=== PATIENT | female | born 1960 | race Caucasian/White ===

== ENCOUNTER → 2023-07-01 | Outpatient (REF) | payer SELFPAY ==
[2023-07-01 18:24] LABS: Absolute Lymphocyte Count 1.66 X10^3/uL (0.83-4.51); Absolute Neutrophil Count 1.6 X10^3/uL (2.0-7.7); Basophil# 0.03 X10^3/uL; Basophil% 0.8 % (0-1); Eosinophil# 0.12 X10^3/uL; Eosinophils% 3.1 % (0-5); Hematocrit 37.6 % (37-47); Hemoglobin 11.4 g/dL (12.0-15.0); Lymphocyte # 1.66 X10^3/ul (0.83-4.51); Lymphocyte % 42.5 % (19-41); Mean Corp Hgb Conc 30.3 g/dL (32-36); Mean Corpuscular Volume 82.5 fL (81-99); Monocyte# 0.48 X10^3/uL; Monocyte% 12.3 % (0-10); NRBC Flagged by Analyzer 0 % (0-5); Neutrophil # 1.62 X10^3/uL (2.7-7.7); Neutrophil % 41.3 % (47-70); Platelet Count 293 K/mm3 (150-450); RBC Distribution Width CV 14.1 % (11.6-14.6); RBC Distribution Width SD 41.6 fl (35.1-43.9); Red Blood Count 4.56 M/mm3 (4.2-5.4); White Blood Count 3.9 K/mm3 (4.4-11.0)
[2023-07-01 18:44] LABS: ALB/GLOB Ratio 0.9 RATIO (0.9-2.4); AST(SGOT) 33 U/L (15-37); Alanine Aminotransfer ALT/SGPT 35 U/L (13-56); Albumin, Serum 3.3 g/dL (3.2-5.0); Alkaline Phosphatase 84 U/L (45-117); Anion Gap 8 (5-15); BUN 9 mg/dL (7-18); BUN/Creat Ratio 13.8 RATIO (10-20); Chloride 108 mmol/L (98-107); Creatinine, Serum 0.65 mg/dL (0.55-1.02); EST Glomerular Filtration Rate 97 mL/min (>60); Est Glom Filt Rate - Afr Amer 117 mL/min (>60); Globulin 3.6 g/dL (2.2-4.2); Glucose 137 mg/dL (74-106); Potassium 4.6 mmol/L (3.5-5.1); Protein, Total 6.9 g/dL (6.4-8.2); Sodium Level 143 mmol/L (136-145)
[2023-07-01 19:01] LABS: Vitamin D,25 Hydroxy 44.9 ng/mL
== END | disposition home or self-care (01) ==
LOC: LABSPEC 18:08
PROVIDERS: Visit Provider Family Medicine
DX: R53.83 Other fatigue (principal)
CPT/HCPCS: 80053; 82306; 85025

== ENCOUNTER → 2023-12-12 | Outpatient (CLI) | payer MEDICARE, SELFPAY ==
--- OUTSIDE RECORDS SUMMARY | 2023-12-12 10:05 | XMS RPT_ITS | CCD ---
Author Name Unknown Address [address] [place] [address] Organization [facility] Care Team Providers Care General Maintenance Technician Name Role Phone MAST TUBER HELPER-VAULT ATTENDANT, EDMOND Primary Care Physician ([phone]) MAST TUBER HELPER-VAULT ATTENDANT, EDMOND Attending Unavailabl e MAST TUBER HELPER-VAULT ATTENDANT, EDMOND Primary Care Unavailabl e MAST TUBER HELPER-VAULT ATTENDANT, EDMOND Attending Unavailabl e MAST TUBER HELPER-VAULT ATTENDANT, EDMOND Primary Care Unavailabl e MAST TUBER HELPER-VAULT ATTENDANT, EDMOND Primary Care Unavailabl e EDUARDO QUIROS, DR PAULINO Attending Unavailab le MAST TUBER HELPER-VAULT ATTENDANT, EDMOND Attending Unavailabl e MAST TUBER HELPER-VAULT ATTENDANT, EDMOND Primary Care Unavailabl e MAST TUBER HELPER-VAULT ATTENDANT, EDMOND Attending Unavailabl e MAST TUBER HELPER-VAULT ATTENDANT, EDMOND Primary Care Unavailabl e Allergies Allergy Classification Reported Allergen(s) Allergy Type Date of Onset Reaction(s) Facility (2 sources) Amoxicillin / Clavulanate; Translations: [amoxicillin-cl avulanate] Drug Allergy Diarrhea (finding) [facility] (2 sources) Codeine; Translations: [codeine] Drug Allergy Clouded consciousness (finding) [facility] Medications Current Medications Medication Drug Class(es) Dates Sig (Normalized) Sig (Original) Iron (2 sources) Start: 11-05-2023 iron iron, 30 mg, 0 Refill(s), 57.4 Start Date: 11/05/23 Status: Ordered Problems Problem Classification Problem Date Documented Da te Episodic/Chronic Conditions associated with dizziness or vertigo (2 sources) Dizziness 05-02-2023 Episodic Fluid and electrolyte disorders (2 sources) Dehydration 07-18-2023 Episodic Intestinal infection (2 sources) Clostridium difficile colitis 07-18-2023 Episodic Nonspecific chest pain (2 sources) Chest discomfort 05-02-2023 Episodic Other lower respiratory disease (2 sources) Dyspnea on exertion 05-02-2023 Episodic Other nutritional; endocrine; and metabolic disorders (2 sources) Weight gain 11-05-2023 Episodic Residual codes; unclassified (2 sources) Physical deconditioning 05-02-2023 Episodic Screening and history of mental health and substance abuse codes (2 sources) Tobacco use and exposure - finding 05-02-2023 Chronic Results Test Name Value Interpretation Reference Range Facil ity Encounters Encounter Date Encounter Type Care Provider Facility Start: 12-11-2023 ambulatory EDMOND MAST TUBER HELPER-VAULT ATTENDANT Fa cility:B Start: 12-03-2023 End: 12-04-2023 ambulatory EDMOND MAST TUBER HELPER-VAULT ATTENDANT Facility:B Start: 11-14-2023 End: 11-15-2023 ambulatory EDMOND MAST TUBER HELPER-VAULT ATTENDANT Facility:B Start: 11-14-2023 End: 11-14-2023 Patient encounter procedure EDMOND MAST TUBER HELPER-VAULT ATTENDANT [facility] Start: 11-05-2023 End: 11-06-2023 ambulatory EDMOND MAST TUBER HELPER-VAULT ATTENDANT Facility:B Start: 11-05-2023 End: 11-05-2023 Patient encounter procedure EDMOND MAST TUBER HELPER-VAULT ATTENDANT [facility] Start: 07-16-2023 End: 07-16-2023 Emergency department patient visit EDMOND MAST TUBER HELPER-VAULT ATTENDANT Facility:B Payers Date Payer Category Payer Private Health Insurance [id number] 2023 Self-pay 1960 Unknown [id number] 2.16.8 [id number] 1960 Unknown [id number] 2.16.8 [id number] 1960 Unknown [id number] 2.16.8 [id number] 1960 Unknown [id number] 2.16.8 [id number] 1960 Unknown [id number] 2.16.8 [id number] Social History Date Type Detail Facility Start: 11-05-2023 Tobacco smoking status Ex-smoker (fi nding) [facility] Sex Assigned At Sex [facility] Clinical Note 11-14-2023 Note Date & Type Note Facility 11-14-2023 Note ORIGINAL FROM: [facility] [address] [place], [place] [address] PROCEDURE FOR: BELLA CHRIS [address] [place] [id number] Home: PID#: [id number] Exam#: [id number] : 1960 Age: 63 TO: EDMOND THORNTON APRN [place], [place] [address] EXAMINATION: SCREENING DIGITAL BILATERAL MAMMOGRAM WITH TOMOSYNTHESIS, 11/14/2023 7:19 am TECHNIQUE: Screening mammography of the bilateral breasts was performed with tomosynthesis. 2D standard and 3D tomosynthesis combination imaging performed through both breasts in the MLO and CC projection. Computer aided detection was utilized in the interpretation of this exam. COMPARISON: None. HISTORY: Breast cancer screening. FINDINGS: BREAST DENSITY: Scattered fibroglandular tissue There are benign appearing calcifications in the left breast. There are no significant masses or calcifications. IMPRESSION: No mammographic evidence of malignancy. Continued screening with annual mammograms is recommended. Sharyn Welch risk calculations, generated with the history provided, report this patient's 10 year risk and lifetime risk for developing breast cancer at 3.3% and 6.9%, respectively. Based on this assessment tool, if the patient's calculated lifetime risk is below 20%, then the patient is considered at average risk for developing breast cancer. If the patient's calculated lifetime risk is at or above 20%, then the patient is considered high risk for developing breast cancer and may be a candidate for supplemental breast MRI screening in addition to annual mammographic screening per the [employer]. I have personally reviewed the images of this examination and agree with the resident's findings and interpretation. BIRADS: MAMMOGRAM BI-RADS: 2: Benign finding RECALL: 1 year screening RECALL TYPE: mammo LETTER SENT: Normal BI-RADS 1 and 2 Interpreted by: Michael Orlando MD Preliminary Report By: Bella Lan Electronically signed By Michael Orlando MD Dictated Date: 11/14/2023 10:11:01 AM Prelim Date: 11/14/2023 4:22:24 PM Sign Date: 11/14/2023 4:22:24 PM Ordering Provider: EDMOND THORNTON CLINICAL: BASELINE PATIENT HAD ONE PRIOR MAMMOGRAM 15+ YEARS AGO. Police Liaison: BENJAMIN HENRY RT(R)(M)(CT) GRAPHICS INTERN letter sent: Normal BI-RADS 1 and 2 Mammogram BI-RADS: 2 Benign [facility] Clinical Note 07-21-2023 Note Date & Type Note Facility 07-21-2023 Note . MICRO - Microbiology PROCEDURE: Fecal Leukocytes [*1] SOURCE: Stool BODY SITE: COLLECTED DATE/TIME: 07/16/2023 14:20 EDT RECEIVED DATE/TIME: 07/16/2023 20:07 EDT START DATE/TIME: 07/16/2023 20:07 EDT FREE TEXT SOURCE: FINAL REPORTS Final Report [] Verified Date/Time/Personnel: 07/21/2023 09:37 EDT Microscopy: Fecal Leukocytes Present Fecal leukocytes may be associated with enteroinvasive infection. However, from our data , in only 50% of bacterial GI infections is there evidence of fecal WBC's. STAINS GS [] Verified Date/Time/Personnel: 07/16/2023 22:09 EDT Microscopy: Fecal Leukocytes Present Fecal leukocytes may be associated with enteroinvasive infection. However, from our data , in only 50% of bacterial GI infections is there evidence of fecal WBC's. Performing Locations *1: This test was performed at: [facility], [address] [place] [address], [id number] , [facility] ([place]) Clinical Note 07-19-2023 Note Date & Type Note Facility 07-19-2023 Note . MICRO - Microbiology PROCEDURE: Stool Culture [^1 *1] SOURCE: Stool BODY SITE: COLLECTED DATE/TIME: 07/16/2023 14:20 EDT RECEIVED DATE/TIME: 07/16/2023 20:07 EDT START DATE/TIME: 07/16/2023 20:07 EDT FREE TEXT SOURCE: FINAL REPORTS Final Report [] Verified Date/Time/Personnel: 07/19/2023 10:40 EDT Normal stool arlene present. Salmonella: Negative Shigella: Negative Campylobacter: Negative PRELIMINARY REPORTS Preliminary Report [] Verified Date/Time/Personnel: 07/18/2023 12:39 EDT Normal stool arlene present. Negative for stool pathogens at 48 hours. Final report to follow. Interpretive Data ^1: Culture Stool Requests for alternative pathogens including Yersinia, E. coli 0157, C. difficile toxin, Rotavirus, Giardia and parasites require specific requests. Performing Locations *1: This test was performed at: [address], [address] [place] [address] ([place]) Clinical Note 07-17-2023 Note Date & Type Note Facility 07-17-2023 Note . MICRO - Microbiology PROCEDURE: Shiga Toxins 1 and 2 [[id number]: [id number] ^1 *1] SOURCE: Stool BODY SITE: COLLECTED DATE/TIME: 07/16/2023 20:07 EDT RECEIVED DATE/TIME: 07/16/2023 20:07 EDT START DATE/TIME: 07/16/2023 20:07 EDT FREE TEXT SOURCE: FINAL REPORTS Final Report [] Verified Date/Time/Personnel: 07/17/2023 13:01 EDT Absence of Shiga toxin 1 Absence of Shiga toxin 2 Order Comments O1: Shiga Toxins 1 and 2 ordered by lab as part of Culture Stool Panel Interpretive Data ^1: Shiga Toxins 1 and 2 Testing performed by immunochromatography. Performing Locations *1: This test was performed at: [address], [address] [place] [address] ([place]) Evaluation + Plan note Radiology Note Date & Type Note Facility Evaluation + Plan note Future Appointments Appointment Date:12/03/2023 08:00:00 AM Scheduled Provider:EDMOND THORNTON Location:[facility] Appointment Type:PC Wellness Medicare Future Scheduled TestsMA Mammo Screening Bilateral w/ Jeffry 11/05/23 [facility] Evaluation + Plan note Note Date & Type Note Facility Evaluation + Plan note Future Appointments Appointment Date:12/03/2023 08:00:00 AM Scheduled Provider:EDMOND THORNTON Location:[facility] Appointment Type: Wellness Medicare [facility] Hospital course Narrative Note Date & Type Note Facility Hospital course Narrative No data available for this section [facility] Hospital Discharge instructions Note Date & Type Note Facility Hospital Discharge instructions No data available for this section [facility] Progress note Note Date & Type Note Facility Progress note No data available for this section [facility] Summary Purpose Family History No Family History Records Found Advance Directives No Advanced Directives Records Found Additional Source Comments Patient Care team informatio n (unrecognized section and content) Care Team Personnel Name: EDMOND THORNTON Position: P4 Advanced Railroad Dispatcher Member Role: Primary Care Physician Address: Address: [address] [place] [address] Care Team Related Persons Name: RICA CHRIS Address: Home [address] [place] [phone] Address: Temporary [address] [place] [phone] Care Team Personnel Name: EDMOND THORNTON Position: P4 Advanced Railroad Dispatcher Member Role: Primary Care Physician Address: Address: [address] [place] [address] Care Team Related Persons Name: RICA CHRIS Address: Home [address] [place] [phone] Address: Temporary [address] [place] [phone] INFORMATION SOURCE (unrecogn ized section and content) FOR RECORDS PERTAINING TO PATIENTS WHO ARE OR HAVE BEEN ENROLLED IN A CHEMICAL DEPENDENCY/SUBSTANCEABUSE PROGRAM, SOME INFORMATION MAY BE OMITTED. This clinical summary was aggregated from multiple sources. Caution should be exercised in using it in the provision of clinical care. This summary normalizes information from multiple sources, and as a consequence, information in this document may materially change the coding, format and clinical context of patient data. In addition, data may be omitted in some cases. CLINICAL DECISIONS SHOULD BE BASED ON THE PRIMARY CLINICAL RECORDS. [facility] [employer] [facility]. provides no warranty or guarantee of the accuracy or completeness of information in this document.
[2023-12-12 12:57] LABS: T4 Free Direct 0.59 ng/dL (0.76-1.46); Thyroid Stim Hormone (TSH) < 0.01 uIU/mL (0.358-3.74)
== END | disposition home or self-care (01) ==
LOC: BIMLAB 09:41
PROVIDERS: PCP Nurse Practitioner Adult Health; Visit Provider Internal Medicine Endocrinology, Diabetes & Metabolism
DX: E05.00 Thyrotoxicosis with diffuse goiter without thyrotoxic crisis or storm (principal)
CPT/HCPCS: 36415; 84439; 84443; 84481

== ENCOUNTER → 2024-01-09 | Outpatient (CLI) | payer MEDICARE, SELFPAY ==
--- OUTSIDE RECORDS SUMMARY | 2024-01-09 12:32 | XMS RPT_ITS | CCD ---
Author Name Unknown Address [address] [place] [address] Organization [facility] Care Team Providers Care Custodian Athletic Equipment Name Role Phone MAST FANCY WIRE DRAWER-VENDOR MANAGEMENT SPECIALIST, EDMOND Primary Care Physician ([phone]) MAST FANCY WIRE DRAWER-VENDOR MANAGEMENT SPECIALIST, EDMOND Attending Unavailabl e MAST FANCY WIRE DRAWER-VENDOR MANAGEMENT SPECIALIST, EDMOND Primary Care Unavailabl e EDUARDO QUIROS, DR PAULINO Attending Unavailab le MAST FANCY WIRE DRAWER-VENDOR MANAGEMENT SPECIALIST, EDMOND Primary Care Unavailabl e MAST FANCY WIRE DRAWER-VENDOR MANAGEMENT SPECIALIST, EDMOND Attending Unavailabl e MAST FANCY WIRE DRAWER-VENDOR MANAGEMENT SPECIALIST, EDMOND Primary Care Unavailabl e MAST FANCY WIRE DRAWER-VENDOR MANAGEMENT SPECIALIST, EDMOND Attending Unavailabl e MAST FANCY WIRE DRAWER-VENDOR MANAGEMENT SPECIALIST, EDMOND Primary Care Unavailabl e MAST FANCY WIRE DRAWER-VENDOR MANAGEMENT SPECIALIST, EDMOND Attending Unavailabl e MAST FANCY WIRE DRAWER-VENDOR MANAGEMENT SPECIALIST, EDMOND Primary Care Unavailabl e Allergies Allergy Classification Reported Allergen(s) Allergy Type Date of Onset Reaction(s) Facility (3 sources) Amoxicillin / Clavulanate; Translations: [amoxicillin-cl avulanate] Drug Allergy Diarrhea (finding) [facility] (3 sources) Codeine; Translations: [codeine] Drug Allergy Clouded consciousness (finding) [facility] Medications Current Medications Medication Drug Class(es) Dates Sig (Normalized) Sig (Original) Iron (2 sources) Start: 11-05-2023 iron iron, 30 mg, 0 Refill(s), 57.4 Start Date: 11/05/23 Status: Ordered methIMAzole 10 mg oral tablet (1 source) Thyroid Hormone Synthesis Inhibitor Start: 12-03-2023 methIMAzole 10 mg oral tablet Dose : 10 mg = 1 tab(s), Oral, q8h, # 90 tab(s), 0 Refill(s) Start Date: 12/03/23 Status: Ordered Problems Problem Classification Problem Date Documented Da te Episodic/Chronic Conditions associated with dizziness or vertigo (3 sources) Dizziness 05-02-2023 Episodic Fluid and electrolyte disorders (3 sources) Dehydration 07-18-2023 Episodic Intestinal infection (2 sources) Clostridium difficile colitis 07-18-2023 Episodic Nonspecific chest pain (3 sources) Chest discomfort 05-02-2023 Episodic Other gastrointestinal disorders (1 source) H/O: colitis 12-03-2023 Episodic Other lower respiratory disease (3 sources) Dyspnea on exertion 05-02-2023 Episodic Other nutritional; endocrine; and metabolic disorders (2 sources) Weight gain 11-05-2023 Episodic Other screening for suspected conditions (not mental disorders or infectious disease) (1 source) Stool DNA-based colorectal cancer screening positive 11-19-2023 Episodic Residual codes; unclassified (3 sources) Physical deconditioning 05-02-2023 Episodic Residual codes; unclassified (1 source) Postmenopausal state 12-03-2023 Episodic Screening and history of mental health and substance abuse codes (3 sources) Tobacco use and exposure - finding 05-02-2023 Chronic Results Test Name Value Interpretation Reference Range Facil ity Encounters Encounter Date Encounter Type Care Provider Facility Start: 12-12-2023 End: 12-13-2023 ambulatory EDMOND MAST FANCY WIRE DRAWER-VENDOR MANAGEMENT SPECIALIST Facility:B Start: 12-12-2023 End: 12-12-2023 Patient encounter procedure EDMOND MAST FANCY WIRE DRAWER-VENDOR MANAGEMENT SPECIALIST [facility] Start: 12-03-2023 End: 12-04-2023 ambulatory EDMOND MAST FANCY WIRE DRAWER-VENDOR MANAGEMENT SPECIALIST Facility:B Start: 11-14-2023 End: 11-15-2023 ambulatory EDMOND MAST FANCY WIRE DRAWER-VENDOR MANAGEMENT SPECIALIST Facility:B Start: 11-14-2023 End: 11-14-2023 Patient encounter procedure EDMOND MAST FANCY WIRE DRAWER-VENDOR MANAGEMENT SPECIALIST [facility] Start: 11-05-2023 End: 11-06-2023 ambulatory EDMOND MAST FANCY WIRE DRAWER-VENDOR MANAGEMENT SPECIALIST Facility:B Start: 11-05-2023 End: 11-05-2023 Patient encounter procedure EDMOND THORNTON FANCY WIRE DRAWER-VENDOR MANAGEMENT SPECIALIST [facility] Start: 07-16-2023 End: 07-16-2023 Emergency department patient visit DR ANDREA CLARK MD Facility:B Payers Date Payer Category Payer Private Health Insurance [id number] 2023 Self-pay 1960 Unknown [id number] 2.16.8 [id number] 1960 Unknown [id number] 2.16.8 [id number] 1960 Unknown [id number] 2.16.8 [id number] 1960 Unknown [id number] 2.16.8 [id number] 1960 Unknown [id number] 2.16.8 [id number] Social History Date Type Detail Facility Start: 11-05-2023 Tobacco smoking status Ex-smoker (fi nding) [facility] Sex Assigned At Sex [facility] Clinical Note 12-12-2023 Note Date & Type Note Facility 12-12-2023 Note ORIGINAL EXAMINATION: BONE DENSITOMETRY 12/12/2023 1:22 pm TECHNIQUE: A bone density dual x-ray absorptiometry (DEXA) scan was performed of the axial (e.g. hips, spine) and/or appendicular (e.g. radius) skeleton as appropriate. COMPARISON: None. HISTORY: Reason for Exam: Osteoporosis Screening FINDINGS: BMD (g/cm2) Lumbar Spine L1-L4: 0.728. T Score Lumbar Spine L1-L4: -2.9 BMD (g/cm2) Left Femoral Neck: 0.556. T Score Left Femoral Neck: -2.6 BMD (g/cm2) Left Hip: 0.707. T Score Left Hip: -1.9 IMPRESSION: Osteoporosis by WHO criteria. I have personally reviewed the images of this examination and agree with the resident's findings and interpretation. Interpreted by: Thanh Alford MD Preliminary Report By: Andrea Mejia Electronically signed By Thanh Alford MD Dictated Date: 12/12/2023 1:50:55 PM Prelim Date: 12/12/2023 4:27:06 PM Sign Date: 12/12/2023 4:27:06 PM [facility] 11-14-2023 Note Date & Type Note Facility 11-14-2023 Note ORIGINAL FROM: [facility] [address] [place] [address] PROCEDURE FOR: BELLA GALLEGOSNNEMAN [address] [place] [phone] Home: PID#: [id number] Exam#: [id number] : 1960 Age: 63 TO: [facility] [place]RISTINA [place] [address] EXAMINATION: SCREENING DIGITAL BILATERAL MAMMOGRAM WITH TOMOSYNTHESIS, [...] Continued screening with annual mammograms is recommended. Tyrer Cuzick risk calculations, generated with the history provided, [...] addition to annual mammographic screening per the [place] [employer]. I have personally reviewed the [...] HAD ONE PRIOR MAMMOGRAM 15+ YEARS AGO. L D Rn: BENJAMIN HENRY RT(R)(M)(CT) WEB SITE ADMINISTRATOR letter sent: Normal BI-RADS 1 and 2 Mammogram BI-RADS: 2 Benign [facility] Clinical Note 07-21-2023 Note Date & Type [...] Locations *1: This test was performed at: [facility], [address] [place] [address], [address] , [facility] ([place]) Clinical Note 07-19-2023 Note Date & Type [...] Locations *1: This test was performed at: [address], [address] [place] [address] ([place]) Clinical Note 07-17-2023 Note Date & Type Note Facility 07-17-2023 Note . MICRO - Microbiology PROCEDURE: Shiga Toxins 1 and 2 [[id number]: [id number] ^1 *1] SOURCE: Stool BODY SITE: COLLECTED [...] Locations *1: This test was performed at: [address], [address] [place] [address] ([place]) Evaluation + Plan note Radiology Note Date & Type Note Facility Evaluation + Plan note Future Appointments Appointment Date:12/03/2023 08:00:00 AM Scheduled Provider:EDMOND THORNTON Location:[facility] Appointment Type:PC Wellness Medicare Future Scheduled TestsMA Mammo Screening Bilateral w/ Jeffry 11/05/23 [facility] Evaluation + Plan note Note Date & Type Note Facility Evaluation + Plan note Future Appointments Appointment Date:12/03/2023 08:00:00 AM Scheduled Provider:EDMOND THORNTON Location:[facility] Appointment Type:PC Wellness Medicare [facility] Hospital course Narrative Note Date & Type Note Facility Hospital course Narrative No data available for this section [facility] Hospital Discharge instructions Note Date & Type Note Facility Hospital Discharge instructions No data available for this section [facility] Progress note Note Date & Type Note Facility Progress note No data available for this section [facility] Summary Purpose Family History No Family History Records Found Advance Directives No Advanced Directives Records Found Additional Source Comments Patient Care team informatio n (unrecognized section and content) Care Team Personnel Name: EDMOND THORNTON Position: P4 Advanced Box Truck Washer Member Role: Primary Care Physician Address: Address: [address] [place] [address] Care Team Related Persons Name: RICA CHRIS Address: Home [address] [place] [phone] Address: Temporary [address] [place] [phone] Care Team Personnel Name: EDMOND THORNTON Position: P4 Advanced Box Truck Washer Member Role: Primary Care Physician Address: Address: [address] [place] [address] Care Team Related Persons Name: RICA CHRIS Address: Home [address] [place] [phone] Address: Temporary [address] [place] [phone] Care Team Personnel Name: EDMOND THORNTON Position: P4 Advanced Box Truck Washer Member Role: Primary Care Physician Address: Address: [address] [facility] [place] [address]- Care Team Related Persons Name: RICA CHRIS Address: Home [address] [place], [place] [phone] Address: Temporary [address] [place], [place] [phone] INFORMATION SOURCE (unrecogn ized section and content) [...] BE BASED ON THE PRIMARY CLINICAL RECORDS. [facility]. provides no warranty or guarantee of the accuracy or completeness of information in this document.
[2024-01-09 13:42] LABS: Free T3 1.7 pg/mL (2.18-3.98); T4 Free Direct 0.41 ng/dL (0.76-1.46); Thyroid Stim Hormone (TSH) 4.46 uIU/mL (0.358-3.74)
== END | disposition home or self-care (01) ==
LOC: BIMLAB 11:05
PROVIDERS: PCP Nurse Practitioner Adult Health; Visit Provider Internal Medicine Endocrinology, Diabetes & Metabolism
DX: E05.00 Thyrotoxicosis with diffuse goiter without thyrotoxic crisis or storm (principal)
CPT/HCPCS: 36415; 84439; 84443; 84481

== ENCOUNTER → 2024-01-30 | Outpatient (CLI) | payer MEDICARE, SELFPAY ==
[2024-01-30 16:37] LABS: Free T3 2.5 pg/mL (2.18-3.98); T4 Free Direct 0.72 ng/dL (0.76-1.46)
== END | disposition home or self-care (01) ==
LOC: BIMLAB 12:04
PROVIDERS: PCP Nurse Practitioner Adult Health; Referring Provider Internal Medicine Endocrinology, Diabetes & Metabolism; Visit Provider Internal Medicine Endocrinology, Diabetes & Metabolism
DX: E05.00 Thyrotoxicosis with diffuse goiter without thyrotoxic crisis or storm (principal)
CPT/HCPCS: 36415; 84439; 84443; 84481

== ENCOUNTER → 2024-04-07 | Outpatient (CLI) | payer MEDICARE, SELFPAY ==
[2024-04-07 16:26] LABS: Free T3 2.7 pg/mL (2.18-3.98); T4 Free Direct 0.85 ng/dL (0.76-1.46); Thyroid Stim Hormone (TSH) 0.31 uIU/mL (0.358-3.74)
== END | disposition home or self-care (01) ==
LOC: BIMLAB 12:35
PROVIDERS: PCP Nurse Practitioner Adult Health; Visit Provider Internal Medicine Endocrinology, Diabetes & Metabolism
DX: E05.00 Thyrotoxicosis with diffuse goiter without thyrotoxic crisis or storm (principal)
CPT/HCPCS: 36415; 84439; 84443; 84481

== ENCOUNTER → 2024-08-24 | Outpatient (CLI) | payer MEDICARE, SELFPAY ==
[2024-08-24 13:08] LABS: Free T3 2.5 pg/mL (2.18-3.98); T4 Free Direct 0.83 ng/dL (0.76-1.46)
== END | disposition home or self-care (01) ==
LOC: BIMLAB 10:49
PROVIDERS: PCP Nurse Practitioner Adult Health; Referring Provider Internal Medicine Endocrinology, Diabetes & Metabolism; Visit Provider Internal Medicine Endocrinology, Diabetes & Metabolism
DX: E05.00 Thyrotoxicosis with diffuse goiter without thyrotoxic crisis or storm (principal)
CPT/HCPCS: 36415; 84439; 84443; 84481

== ENCOUNTER → 2024-10-04 | Outpatient (CLI) | payer MEDICARE, SELFPAY ==
[2024-10-04 15:56] LABS: Free T3 2.5 pg/mL (2.18-3.98); T4 Free Direct 0.87 ng/dL (0.76-1.46)
== END | disposition home or self-care (01) ==
LOC: BIMLAB 14:06
PROVIDERS: PCP Nurse Practitioner Adult Health; Referring Provider Internal Medicine Endocrinology, Diabetes & Metabolism; Visit Provider Internal Medicine Endocrinology, Diabetes & Metabolism
DX: E05.00 Thyrotoxicosis with diffuse goiter without thyrotoxic crisis or storm (principal)
CPT/HCPCS: 36415; 84439; 84443; 84481

== ENCOUNTER → 2025-05-27 | Outpatient (CLI) | payer MEDICARE, SELFPAY ==
[2025-05-27 17:21] LABS: Free T3 2.8 pg/mL (2.18-3.98)
== END | disposition home or self-care (01) ==
LOC: BIMLAB 15:14
PROVIDERS: PCP Nurse Practitioner Adult Health; Referring Provider Internal Medicine Endocrinology, Diabetes & Metabolism; Visit Provider Internal Medicine Endocrinology, Diabetes & Metabolism
DX: E05.00 Thyrotoxicosis with diffuse goiter without thyrotoxic crisis or storm (principal)
CPT/HCPCS: 36415; 84439; 84443; 84481